=== PATIENT | female | born 2005 | race Caucasian/White ===

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

== ENCOUNTER 2023-10-09 07:35 | Emergency (ER) | payer MEDICAID ==
[~2023-10-09] VITALS: Ht 152.4 cm; Wt 53.6 kg
[~2023-10-09 07:35] MED LIST changes: +HYDROCORTISONE30 G3 TP; +PREDNISONE10 MG PO
[2023-10-09 08:08] VITALS: BP 128/85; TEMP 98.7
[2023-10-09 11:13] VITALS: PULSE 85
== END 2023-10-09 11:13 | disposition home or self-care (01) ==
LOC: COL.ER 07:35
DX: S61.211A Laceration without foreign body of left index finger without damage to nail, initial encounter (principal); S63.501A Unspecified sprain of right wrist, initial encounter; W26.8XXA Contact with other sharp object(s), not elsewhere classified, initial encounter; W22.01XA Walked into wall, initial encounter; Y99.0 Civilian activity done for income or pay